=== PATIENT | female | born 1995 | race African-American/Black ===

== ENCOUNTER 2022-07-06 20:30 | Emergency (ER) | payer BC ==
[2022-07-06] MEDS ORDERED: METHYLPREDNISOLONE 125 MG INJ ONE (21:43)
[2022-07-06] MEDS ORDERED: KETOROLAC 30 MG/ML INJ ONE (21:43)
[2022-07-06] MEDS ORDERED: DIPHENHYDRAMINE 50 MG/ML VIAL ONE (21:43)
[2022-07-06] MEDS ORDERED: FAMOTIDINE 20 MG/2 ML VIAL IV ONE (21:44)
[2022-07-06] MEDS ORDERED: NA CHLORIDE 0.9% 500 ML ONE (21:44)
--- NOTE | 2022-07-06 22:53 | EDPHYS ---
Physician Documentation [facility] Name: Leah Rogers Age: 26 yrs Sex: Female : 1995 Arrival Date: 07/06/2022 Time: 20:30 Bed 11 Private MD: ED Physician Felipe Carroll HPI: 07/06 21:11 This 26 yrs old Black Female presents to ER via Ambulatory with complaints of FOREIGN sp4 STING FROM [place], NUMBNESS IN LOW/UPPER EXT. 21:11 . sp4 22:45 Mrs. Lynn is a 26-year-old female who presents with acute discomfort, right forearm sp4 redness and the rash, and left ankle pain associated with presumed envenomation in the seawater. Patient was swimming in the golf at the [facility] and then developed pain in the left ankle and also acute rash to the right forearm associated with itching and pain. Patient also reported shaking chills. Denied any breathing difficulty. 22:45 Symptom onset was estimated 1 hour prior to arrival.. sp4 Historical: - Allergies: 21:09 No Known Allergies; nj1 - PMHx: 21:09 Anemia; nj1 - PSHx: 21:09 section; section; section; nj1 - Immunization history:: Client reports having NOT received the Covid vaccine. - Social history:: Smoking status: Patient reports the use of cigarette tobacco products, denies chronic smoking, but will smoke occasionally. - Family history:: not pertinent. ROS: 22:45 Constitutional: Negative for fever, chills, and weight loss, Eyes: Negative for injury, sp4 pain, redness, and discharge, ENT: Negative for injury, pain, and discharge, Neck: Negative for injury, pain, and swelling, Cardiovascular: Negative for chest pain, palpitations, and edema, Respiratory: Negative for shortness of breath, cough, wheezing, and pleuritic chest pain, Abdomen/GI: Negative for abdominal pain, nausea, vomiting, diarrhea, and constipation, Back: Negative for injury and pain, : Negative for injury, bleeding, discharge, and swelling, MS/Extremity: Left ankle pain and associated right forearm rash itching and pain, no deformity otherwise Skin: Positive for left ankle pain, right forearm rash with redness. Itching pain, otherwise negative Neuro: Negative for headache, weakness, numbness, tingling, and seizure, Psych: Negative for depression, anxiety, Allergy/Immunology: Negative for hives, rash, and allergies Endocrine: Negative for neck swelling, polydipsia, polyuria, polyphagia, and weight changes Hematologic/Lymphatic: Negative for swollen nodes, abnormal bleeding, and unusual bruising Exam: 22:45 Constitutional: This is a well developed, well nourished patient who is awake, alert, sp4 and in no acute distress. Head/Face: Normocephalic, atraumatic. Eyes: Pupils equal round and reactive to light, extra-ocular motions intact. Lids and lashes normal. Conjunctiva and sclera are not injected. Cornea within normal limits. Periorbital areas with no swelling, redness, or edema. ENT: Nares patent. No nasal discharge, no septal abnormalities noted. Tympanic membranes are normal and external auditory canals are clear. Oropharynx with no redness, swelling, or masses, exudates, or evidence of obstruction, uvula midline. Mucous membranes moist. Neck: Trachea midline, no thyromegaly or masses palpated, and no cervical lymphadenopathy. Supple, full range of motion without nuchal rigidity, or vertebral point tenderness. No Meningismus. Chest/axilla: Normal chest wall appearance and motion. Nontender with no deformity. No lesions are appreciated. Cardiovascular: Regular rate and rhythm with a normal S1 and S2. No gallops, murmurs, or rubs. Normal PMI, no JVD. No pulse deficits. Respiratory: Lungs have equal breath sounds bilaterally, clear to auscultation and percussion. No rales, rhonchi or wheezes noted. No increased work of breathing, no retractions or nasal flaring. Abdomen/GI: Soft, non-tender, with normal bowel sounds. No distension or tympany. No guarding or rebound. No evidence of tenderness throughout. Back: No spinal tenderness. No costovertebral tenderness. Skin: Warm, dry with normal turgor. Right forearm hives that are mild, otherwise normal exam MS/ Extremity: Pulses equal, no cyanosis. Neurovascular intact. Full, normal range of motion. Neuro: Awake and alert, GCS 15, oriented to person, place, time, and situation. Cranial nerves II-XII grossly intact. Motor strength 5/5 in all extremities. Sensory grossly intact. Psych: Awake, alert, with orientation to person, place and time. Behavior, mood, and affect are within normal limits Vital Signs: 21:06 BP 129 / 104; Pulse 82; Resp 18; Temp 99; Pulse Ox 100% ; Weight 65.77 kg; Height 5 ft. nj1 5 in. ; Pain 6/10; 23:01 BP 138 / 98; Pulse 79; Resp 16 S; Pulse Ox 99% on R/A; as7 21:06 Body Mass Index 24.13 (65.77 kg, 165.1 cm) nj1 21:06 Pain Scale: Adult nj1 MDM: 21:17 Patient medically screened. sp4 22:45 Differential Diagnosis Acute envenomation, acute marine life sting, acute contact sp4 dermatitis. Data reviewed: vital signs, nurses notes, old medical records. ED course: Patient has history of bilateral tubal ligation 3 years ago. Patient was given medications for acute contact dermatitis with improvement in the emergency room, at this time rash presumed envenomation by possible jellyfish. A will advise patient daily gentle irrigation and cool showers with antibacterial soap. Benadryl and prednisone p.o. for the next 5 days.. 07/06 21:17 Order name: Saline Lock; Complete Time: 23:01 sp4 Administered Medications: 21:40 Drug: MethylPrednisoLONE IVP 125 mg Route: IVP; Site: right antecubital; pf1 22:40 Follow up: Response: No adverse reaction; Marked relief of symptoms pf1 21:40 Drug: Famotidine IVP 20 mg Route: IVP; Site: right antecubital; pf1 22:40 Follow up: Response: No adverse reaction; Marked relief of symptoms pf1 21:40 Drug: diphenhydrAMINE IVP 50 mg Route: IVP; Site: right antecubital; pf1 22:40 Follow up: Response: No adverse reaction; Marked relief of symptoms pf1 21:40 Drug: NS 0.9% IV 500 ml Route: IV; Rate: bolus; Site: right antecubital; pf1 22:40 Follow up: Response: No adverse reaction; Marked relief of symptoms; IV Status: pf1 Completed infusion; IV Intake: 500ml 21:40 Drug: Ketorolac IVP 30 mg Route: IVP; Site: right antecubital; pf1 22:40 Follow up: Response: No adverse reaction; Marked relief of symptoms; Pain is decreased pf1 Disposition Summary: 07/06/22 22:52 Discharge Ordered Location: Home sp4 Problem: new sp4 Symptoms: have improved sp4 Condition: Stable sp4 Diagnosis - Acute contact dermatitis, acute envenomation by marine life sp4 Followup: sp4 - With: Private Physician - When: As needed - Reason: Discharge Instructions: - Discharge Summary Sheet sp4 - Contact Dermatitis, [id number] sp4 Prescriptions: - Benadryl 25 mg Oral Capsule - take 1 capsule by ORAL route every 6 hours As needed; 30 tablet; Refills: 0, sp4 Product Selection Permitted - Prednisone 20 mg Oral Tablet - take 2 tablets by ORAL route once daily for 5 days; 10 tablet; Refills: 0, sp4 Product Selection Permitted Signatures: Ruba Causey, RN RN pf1 Felipe Carroll MD MD sp4 Zenia Islas RN RN nj1 Corrections: (The following items were deleted from the chart) 21:09 21:09 PMHx: None; nj1 nj1
--- NOTE | 2022-07-06 22:53 | ER ---
Nurse's Notes [facility] Name: Leah Rogers Age: 26 yrs Sex: Female : 1995 Arrival Date: 07/06/2022 Time: 20:30 Bed 11 Private MD: Diagnosis: Acute contact dermatitis, acute envenomation by marine life Presentation: 07/06 21:06 Chief complaint: Patient states: [place] the [place], felt like something sting her nj1 left lower leg, got out of the water, felt sting/burning sensation all over her body, saw whelps on her extremities which has gotten better but still feels stinging/burning sensation as well as numbness. Coronavirus screen: Vaccine status: Patient reports being unvaccinated. Ebola Screen: Patient denies travel to an Ebola-affected area in the 21 days before illness onset. Initial Sepsis Screen: Does the patient meet any 2 criteria? No. Patient's initial sepsis screen is negative. Does the patient have a suspected source of infection? No. Patient's initial sepsis screen is negative. Risk Assessment: Do you want to hurt yourself or someone else? Patient reports no desire to harm self or others. Onset of symptoms was July 06, 2022 at 19:30. 21:06 Method Of Arrival: Ambulatory [facility] 21:06 Acuity: NEGRITO 3 nj1 Historical: - Allergies: 21:09 No Known Allergies; nj1 - PMHx: 21:09 Anemia; nj1 - PSHx: 21:09 section; section; section; nj1 - Immunization history:: Client reports having NOT received the Covid vaccine. - Social history:: Smoking status: Patient reports the use of cigarette tobacco products, denies chronic smoking, but will smoke occasionally. - Family history:: not pertinent. Screenin:10 [facility] ED Fall Risk Assessment (Adult) History of falling in the last 3 months, pf1 including since admission No falls in past 3 months (0 pts) Confusion or Disorientation No (0 pts) Intoxicated or Sedated No (0 pts) Impaired Gait No (0 pts) Mobility Assist Device Used No (0 pt) Altered Elimination No (0 pt) Score/Fall Risk Level 0 - 2 = Low Risk Oriented to surroundings, Maintained a safe environment, Educated pt \T\ family on fall prevention, incl call for assistance when getting out of bed, Assessed \T\ reinforced patient's understanding of fall precautions, Provided non-skid footwear, Hourly rounding (assess needs \T\ fall precautionary measures) done, Used ambulatory aids as needed (educated on \T\ assisted with), Used gait belt as appropriate. 21:10 Abuse screen: Denies threats or abuse. Nutritional screening: No deficits noted. pf1 Tuberculosis screening: No symptoms or risk factors identified. Assessment: 21:10 General: Appears in no apparent distress. comfortable, well groomed, well developed, pf1 Behavior is calm, cooperative, appropriate for age, quiet. 21:10 Pain: Complains of pain in right leg and left leg Pain currently is 6 out of 10 on a pf1 pain scale. Neuro: No deficits noted. Level of Consciousness is awake, alert, obeys commands, Oriented to person, place, time, situation. Cardiovascular: No deficits noted. Capillary refill < 3 seconds Patient's skin is warm and dry. Respiratory: No deficits noted. Airway is patent Respiratory effort is even, unlabored, Respiratory pattern is regular, symmetrical. GI: No deficits noted. No signs and/or symptoms were reported involving the gastrointestinal system. : No deficits noted. No signs and/or symptoms were reported regarding the genitourinary system. EENT: No deficits noted. No signs and/or symptoms were reported regarding the EENT system. Derm: Reports burning, pain that is 6 out of 10 on a pain scale. Musculoskeletal: Reports pain in right leg and left leg. 22:00 Reassessment: Patient appears in no apparent distress at this time. Patient and/or pf1 family updated on plan of care and expected duration. Pain level reassessed. Patient is alert, oriented x 3, equal unlabored respirations, skin warm/dry/pink. Patient states symptoms have improved. Vital Signs: 21:06 BP 129 / 104; Pulse 82; Resp 18; Temp 99; Pulse Ox 100% ; Weight 65.77 kg; Height 5 ft. nj1 5 in. ; Pain 6/10; 23:01 BP 138 / 98; Pulse 79; Resp 16 S; Pulse Ox 99% on R/A; as7 21:06 Body Mass Index 24.13 (65.77 kg, 165.1 cm) [facility] 21:06 Pain Scale: Adult nj1 ED Course: 19:30 Patient has correct armband on for positive identification. pf1 20:34 Patient arrived in ED. jj6 21:09 Triage completed. nj1 21:09 Arm band placed on left wrist. nj1 21:11 Felipe Carroll MD is Attending Physician. sp4 21:25 Inserted saline lock: 20 gauge in right antecubital area, using aseptic technique. nj1 22:57 IV discontinued. as7 22:58 No provider procedures requiring assistance completed. pf1 22:58 intact, bleeding controlled, No redness/swelling at site. Pressure dressing applied. pf1 Administered Medications: 21:40 Drug: MethylPrednisoLONE IVP 125 mg Route: IVP; Site: right antecubital; pf1 22:40 Follow up: Response: No adverse reaction; Marked relief of symptoms pf1 21:40 Drug: Famotidine IVP 20 mg Route: IVP; Site: right antecubital; pf1 22:40 Follow up: Response: No adverse reaction; Marked relief of symptoms pf1 21:40 Drug: diphenhydrAMINE IVP 50 mg Route: IVP; Site: right antecubital; pf1 22:40 Follow up: Response: No adverse reaction; Marked relief of symptoms pf1 21:40 Drug: NS 0.9% IV 500 ml Route: IV; Rate: bolus; Site: right antecubital; pf1 22:40 Follow up: Response: No adverse reaction; Marked relief of symptoms; IV Status: pf1 Completed infusion; IV Intake: 500ml 21:40 Drug: Ketorolac IVP 30 mg Route: IVP; Site: right antecubital; pf1 22:40 Follow up: Response: No adverse reaction; Marked relief of symptoms; Pain is decreased pf1 Medication: 23:00 VIS not applicable for this client. pf1 Intake: 22:40 IV: 500ml; Total: 500ml. pf1 Outcome: 22:52 Discharge ordered by . sp4 23:06 Discharged to home ambulatory, with family. pf1 23:06 Condition: improved 23:06 Discharge instructions given to patient, Instructed on discharge instructions, follow up and referral plans. Demonstrated understanding of instructions, follow-up care, medications, Prescriptions given X 2. 23:06 Patient left the ED. pf1 Signatures: Nhung Girard jj6 Ruba Causey RN RN pf1 Caryn Elise as7 Felipe Carroll MD MD sp4 Zenia Islas RN RN nj1 Corrections: (The following items were deleted from the chart) 21:09 PMHx: None; nj1 nj1 07/07 06:56 07/06 23:07 Patient left the ED. pf1 pf1
[2022-07-06 23:19] VITALS: TEMP 99
[2022-07-06 23:30] VITALS: BP 138/98; O2SAT 99
== END 2022-07-06 23:07 | disposition home or self-care (01) ==
LOC: ER 20:30
DX: L25.9 Unspecified contact dermatitis, unspecified cause (principal); T63.691A Toxic effect of contact with other venomous marine animals, accidental (unintentional), initial encounter; F17.210 Nicotine dependence, cigarettes, uncomplicated
CPT/HCPCS: 96361; 96375; 96374; 99284; J1200; J2930; J7040